=== PATIENT | female | born 1955 | race Caucasian/White ===

== ENCOUNTER 2021-10-08 19:33 | Inpatient (IN) | payer MEDICAID ==
[~2021-10-08] VITALS: Ht 162.6 cm; Wt 67.6 kg
--- NOTE | 2021-10-08 19:45 | NUR ---
[id number] C/O RIGHT SIDED ABDOMINAL PAIN X2DAYS. 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 PATIENT ALERT AND ORIENTED PARAGUAYAN SPEAKING ONLY. PATIENT PLACED IN BED 11 ON MONITOR AND IN A GOWN.
--- NOTE | 2021-10-08 19:50 | NUR ---
US TECH AT PT'S BEDSIDE
--- NOTE | 2021-10-08 19:51 | NUR ---
RLQ & LLQ OSTOMY DRAINING AND INTACT.
[2021-10-08] MEDS ORDERED: MORPHINE SULFATE INJ 2 MG/ML DISP.SYRIN IV ONE (20:00)
[2021-10-08] MEDS ORDERED: MORPHINE SULFATE INJ 4 MG/ML DISP.SYRIN ONE (20:07)
--- NOTE | 2021-10-08 21:07 | NUR ---
R WRIST #22g s/l ;patent and intact
[2021-10-08] MEDS ORDERED: HYDROMORPHONE 1 MG/1 ML DISP.SYRIN IV ONE (22:00)
--- NOTE | 2021-10-08 22:32 | NUR ---
MOVE SHEET SUBMITTED
[2021-10-08] MEDS ORDERED: HYDROMORPHONE 1 MG/1 ML DISP.SYRIN ONE (22:33)
--- NOTE | 2021-10-08 22:39 | NUR ---
COVID ANTIGEN SWAB COLLECTED AND SENT TO LAB
[2021-10-08 22:49] LABS: BASOPHILS % (AUTO) 0.2 % (0.0-2.0); EOSINOPHILS % (AUTO) 0.1 % (0.0-6.0); HEMATOCRIT 24 % (33-45); HEMOGLOBIN 7.8 g/dL (11.5-14.8); LYMPHOCYTES # (AUTO) 0.5 K/uL (0.8-4.8); LYMPHOCYTES % (AUTO) 20.6 % (20.0-44.0); MEAN CORPUSCULAR HGB CONC 32 g/dl (31.0-36.0); MEAN CORPUSCULAR VOLUME 75 fL (82-100); MONOCYTES # (AUTO) 0.4 K/uL (0.1-1.30); MONOCYTES % (AUTO) 16.9 % (2.0-12.0); NEUTROPHILS # (AUTO) 1.4 K/uL (1.8-8.9); NEUTROPHILS % (AUTO) 62.2 % (43.0-81.0); PLATELET COUNT (AUTO) 174 K/uL (150-450); WHITE BLOOD COUNT (AUTO) 2.3 K/uL (4.3-11.0)
--- NOTE | 2021-10-08 23:35 | NUR ---
COVID ANTIGEN POSITIVE
[2021-10-09 00:06] LABS: BAND % (MANUAL) 1 % (0.0-5.0); LYMPHOCYTES % (MANUAL) 17 % (16-48); MONOCYTES % (MANUAL) 18 % (0-11.0); NEUTROPHILS % (MANUAL) 64 (42-76)
--- NOTE | 2021-10-09 00:08 | NUR ---
PATIENT AWAITING ACCEPTANCE TO [facility]
[2021-10-09 00:24] LABS: ALBUMIN 2.1 g/dL (3.4-5.0); BILIRUBIN,DIRECT 1.6 mg/dL (0.0-0.2); BILIRUBIN,TOTAL 1.9 mg/dL (0.2-1.0); CREATININE 1.7 mg/dL (0.6-1.3)
[2021-10-09 00:58] LABS: POTASSIUM 3.6 mmol/L (3.5-5.1)
[2021-10-09 00:59] LABS: CALCIUM, SERUM 8.1 mg/dL (8.5-10.1)
[2021-10-09 01:00] LABS: TOTAL PROTEIN, SERUM 7.4 g/dL (6.4-8.2)
--- NOTE | 2021-10-09 01:13 | NUR ---
EDWIN KNOX UPDATED WITH CLINICALS
--- NOTE | 2021-10-09 01:47 | NUR ---
DR. MCWILLIAMS DO SPEAKING TO [facility] VIA PHONE CALL
[2021-10-09] MEDS ORDERED: IV NS 0.9% 1,000 ML BAG IV ONE (02:00)
[2021-10-09] MEDS ORDERED: HYDROMORPHONE 1 MG/1 ML DISP.SYRIN ONE ×2 (02:25→09:10)
[2021-10-09] MEDS ORDERED: HYDROMORPHONE 1 MG/1 ML DISP.SYRIN IV ONE ×2 (02:30→09:30)
--- NOTE | 2021-10-09 06:00 | NUR ---
2 percutaneous biliary drains to RLQ & LLQ draining bilious material; 110 total output. PT kept comfortable. R wrist #22g s/l; patent and intact. VSS. tolerating r/a well at 99%
--- NOTE | 2021-10-09 09:44 | NUR ---
CALLED [facility] AND WAS NOTIFIED THAT THERE ARE NO BEDS ARE AVAILABLE
--- NOTE | 2021-10-09 09:59 | NUR ---
pt resting in bed. appears more comfortable. stable vitals. updated. will continue to monitor.
--- NOTE | 2021-10-09 11:29 | NUR ---
CALLED HYDRAULIC TECHNICIAN FOR THE PT AND WAS NOTIFIED THAT THE PT IS ABLE TO STAY HERE
--- NOTE | 2021-10-09 11:35 | NUR ---
DR. ELLIS TO DR. HECTOR
--- NOTE | 2021-10-09 11:41 | NUR ---
report given to barry moe for ronel.
[2021-10-09] MEDS ORDERED: LIPA1CAP15 PO (11:52)
[2021-10-09] MEDS ORDERED: HYDR-3972 MT (11:52)
[2021-10-09] MEDS ORDERED: PANT40TA49 PO (11:52)
[2021-10-09] MEDS ORDERED: FAMO40TA7 PO (11:52)
[2021-10-09] MEDS ORDERED: SPIR50TA5 PO (11:52)
[2021-10-09] MEDS ORDERED: LISI10TA29 PO (11:52)
[2021-10-09] MEDS ORDERED: FURO20TA4 PO (11:52)
--- NOTE | 2021-10-09 12:00 | NUR ---
RN NOTE RECEIVED PATIENT FROM ER TRANSPORTED VIA GURNEY, ACCOMPANIED BY NURSE. PATIENT TRANSFERRED TO BED WITH ASSISTANCE. COMFORT MEASURES PROVIDED. PATIENT IS ALERT AND ORIENTED X4 SPEAKS MOSOTHO AND MALAYSIAN, WITH NO SIGNS OF DISTRESS. WITH IV ACCESS ON THE RIGHT WRIST G 22 PATENT AND INTACT ON SALINE LOCK. WITH LEFT AND RIGHT BILIARY DRAIN WITH YELLOWISH TO BROWNISH DRAINAGE. WITH ENLARGED ABDOMEN WITH SOME TENDERNESS. SAFETY PRECAUTIONS IN PLACE; BED IN LOW POSITION AND LOCKED, RAILS UP X2, CALL LIGHT WITHIN REACH. WILL MONITOR PATIENT. DR. ELLIS NOTIFIED OF ADMISSION.
--- NOTE | 2021-10-09 13:00 | NUR ---
MS RN NOTE SEEN BY DR. ELLIS. WILL CONTINUE TO MONITOR PATIENT.
[2021-10-09] MEDS ORDERED: ONDANSETRON HCL/PF 4 MG/2 ML VIAL IV PRN (13:30)
[2021-10-09] MEDS ORDERED: HYDROMORPHONE MDV 1 MG in IV D5W 50 ML IV PRN (13:30)
[2021-10-09] MEDS: LIPASE/PROTEASE/AMYLASE 1 EACH CAPSULE.DR PO SCH ×2 (14:22→18:02)
[2021-10-09] MEDS: Potassium Chloride 10 MEQ in IV NS 0.9% 1,000 ML IV SCH (14:33)
[2021-10-09] MEDS: HYDROMORPHONE 1 MG/1 ML DISP.SYRIN IV PRN ×3 (14:43→22:39)
[2021-10-09] MEDS ORDERED: SPIRONOLACTONE 25 MG TABLET PO SCH (17:00)
[2021-10-09] MEDS: HYDROCODONE/APAP 5/325MG TABLET PO PRN (18:02)
[2021-10-09] MEDS ORDERED: PIPERACILLIN /TAZOBACTAM 2.25 G in IV D5W 50 ML IV SCH (18:30)
--- NOTE | 2021-10-09 19:00 | NUR ---
MS RN NOTE PATIENT IS ALERT AND ORIENTED X4 SPEAKS ZIMBABWEAN AND BELARUSIAN, WITH NO SIGNS OF DISTRESS. WITH IV ACCESS ON THE RIGHT WRIST G 22 PATENT AND INTACT ON SALINE LOCK. WITH LEFT WRIST G 24, WITH IVF OF NS + 10MEQ KCL INFUSING WELL. WITH LEFT AND RIGHT BILIARY DRAIN WITH YELLOWISH TO BROWNISH DRAINAGE DRAINED 300ML. SPECIMEN SENT TO LAB. SAFETY PRECAUTIONS IN PLACE; BED IN LOW POSITION AND LOCKED, RAILS UP X2, CALL LIGHT WITHIN REACH. WILL ENDORSE FOR CONTINUITY OF CARE.
[2021-10-09] MEDS: ZOSYN IVPB 3.375 G in IV D5W 50ml IV SCH (19:43)
[2021-10-09 20:00] VITALS: BP 121/63
--- NOTE | 2021-10-09 20:25 | NUR ---
MS2 RN OPENING NOTE PATIENT RECEIVED IN BED AWAKE. A/OX4. NO S/S OF DISTRESS, BREATHING SYMMETRICAL. RW #24, LW #22 PATENT AND INTACT. SAFETY MEASURES IN PLACE: BED AT LOWEST POSITION, RAILS UP X2, CALL THAKUR WITHIN REACH. WILL CONTINUE TO MONITOR PATIENT.
[2021-10-10] VITALS: BP 111/57
[2021-10-10] MEDS: ZOSYN IVPB 3.375 G in IV D5W 50ml IV SCH ×4 (01:38→18:26)
[2021-10-10] MEDS: Potassium Chloride 10 MEQ in IV NS 0.9% 1,000 ML IV SCH ×2 (02:57→16:30)
[2021-10-10 04:00] VITALS: BP 115/61
[2021-10-10] MEDS: HYDROMORPHONE 1 MG/1 ML DISP.SYRIN IV PRN ×5 (05:44→22:35)
[2021-10-10 07:08] LABS: BASOPHILS % (AUTO) 0.4 % (0.0-2.0); EOSINOPHILS % (AUTO) 0.1 % (0.0-6.0); HEMATOCRIT 24 % (33-45); HEMOGLOBIN 7.8 g/dL (11.5-14.8); LYMPHOCYTES # (AUTO) 0.5 K/uL (0.8-4.8); LYMPHOCYTES % (AUTO) 19.6 % (20.0-44.0); MEAN CORPUSCULAR HGB CONC 33 g/dl (31.0-36.0); MEAN CORPUSCULAR VOLUME 75 fL (82-100); MONOCYTES # (AUTO) 0.5 K/uL (0.1-1.30); MONOCYTES % (AUTO) 21.1 % (2.0-12.0); NEUTROPHILS # (AUTO) 1.4 K/uL (1.8-8.9); NEUTROPHILS % (AUTO) 58.8 % (43.0-81.0); PLATELET COUNT (AUTO) 174 K/uL (150-450); RED BLOOD CELL COUNT(AUTO) 3.18 MIL/uL (4.0-5.2); WHITE BLOOD COUNT (AUTO) 2.4 K/uL (4.3-11.0)
--- NOTE | 2021-10-10 07:18 | NUR ---
BORING MACHINE OPERATOR VERTICAL CLOSING NOTE PATIENT AWAKE IN ROOM. A/OX3-4. NO S/S OF DISTRESS, BREATHING W/O DIFFICULTY. SAFETY MEASURES IN PLACE: BED AT LOWEST POSITION, RAILS UP X2, CALL THAKUR WITHIN REACH. WILL ENDORSE TO NEXT SHIFT FOR PRICE.
--- NOTE | 2021-10-10 07:25 | NUR ---
RN OPENING NOTE- PT IN BED AWAKE. A/OX4. NO S/S OF DISTRESS, DENIES PAIN AT PRESENT, RW #24, LW #22 PATENT AND INTACT. SAFETY MEASURES IN PLACE, BED AT LOWEST POSITION, RAILS UP X2, CALL THAKUR WITHIN REACH. WILL CONTINUE TO MONITOR PATIENT.
[2021-10-10 07:27] LABS: ALBUMIN 1.9 g/dL (3.4-5.0); BILIRUBIN,TOTAL 1.9 mg/dL (0.2-1.0); CREATININE 1.3 mg/dL (0.6-1.3); POTASSIUM 3.8 mmol/L (3.5-5.1); TOTAL PROTEIN, SERUM 6.9 g/dL (6.4-8.2)
[2021-10-10 08:00] VITALS: BP 124/75
[2021-10-10] MEDS: LIPASE/PROTEASE/AMYLASE 1 EACH CAPSULE.DR PO SCH ×3 (08:13→16:40)
[2021-10-10] MEDS: LISINOPRIL (10MG) 10 MG TABLET PO SCH (08:13)
[2021-10-10] MEDS: PANTOPRAZOLE 40 MG TABLET.DR PO SCH (08:14)
[2021-10-10] MEDS: FAMOTIDINE (20 MG) 20 MG TABLET PO SCH (08:47)
[2021-10-10] MEDS ORDERED: FAMOTIDINE 40 MG TABLET PO SCH (09:00)
[2021-10-10] MEDS ORDERED: FUROSEMIDE 20 MG TABLET PO SCH (09:00)
[2021-10-10 10:34] LABS: BAND % (MANUAL) 8 % (0.0-5.0); LYMPHOCYTES % (MANUAL) 16 % (16-48); MONOCYTES % (MANUAL) 14 % (0-11.0); NEUTROPHILS % (MANUAL) 62 (42-76)
[2021-10-10] MEDS: VANCOMYCIN HCL 0.75 GM in IV D5W 250 ML IV SCH ×2 (11:30→22:34)
[2021-10-10 12:00] VITALS: BP 130/71
[2021-10-10] MEDS: SOD FERRIC GLUC 125 MG in IV NS 0.9% 100 ML IV SCH (14:34)
[2021-10-10] MEDS: HYDROCODONE/APAP 5/325MG TABLET PO PRN (15:55)
--- NOTE | 2021-10-10 16:00 | NUR ---
RN NOTE- PT STILL W PAIN ISSUES. CALLED DR ELLIS. ORDERED TORADOL 15MG IVP Q6H PRN
[2021-10-10] MEDS: KETOROLAC TROMETHAMINE INJ 30 MG/ML VIAL IV PRN (17:57)
--- NOTE | 2021-10-10 18:00 | NUR ---
RN NOTE- BILIARY DRAINS. CALLED DR ELLIS AND ASKED ABOUT FLUSHING BILIARY DRAINS. AWAITING RESPONSE. EMPTIED BAGS. LEFT 50CC OUTPUT, RT 250 CC OUTPUT
--- NOTE | 2021-10-10 18:43 | NUR ---
RN CLOSING NOTE- PT IN BED AWAKE. A/OX4. NO S/S OF DISTRESS, PAIN A BIT BETTER CONTROLLED UTILIZING DILAUDID, TORADOL, NORCO OVERLAPPING AT INTERVALS. RW #24, LW #22 PATENT AND INTACT. IVF INFUSING NS W 10MEQ KCL AT 75/HR. SAFETY MEASURES IN PLACE, BED AT LOWEST POSITION, RAILS UP X2, CALL THAKUR WITHIN REACH. WILL CONTINUE TO MONITOR PATIENT.
[2021-10-10 20:00] VITALS: BP_SYST 95; BP_DIAS 45; BP_DIAS 54
--- NOTE | 2021-10-10 20:30 | NUR ---
RN NOTES RECEIVED PATIENT IN BED, ALERT/ORIENTED X4, STABLE ON ROOM AIR, CHRONIC ABDOMINAL PAIN DUE CANCER, LEFT AND RIGHT BILIARY DRAIN, GREEN DRAINAGE, REQUESTING TO FLUSH BOTH DRAINS, WILL FLUSH PER PROTOCOL, KEPT SAFE, CALL LIGHT WITHIN REACH.
[2021-10-11] VITALS (11 sets, daily range): BP systolic 84–107; BP diastolic 47–68
[2021-10-11] MEDS: ZOSYN IVPB 3.375 G in IV D5W 50ml IV SCH ×4 (02:02→20:55)
[2021-10-11] MEDS: HYDROMORPHONE 1 MG/1 ML DISP.SYRIN IV PRN ×3 (06:03→17:18)
[2021-10-11] MEDS: Potassium Chloride 10 MEQ in IV NS 0.9% 1,000 ML IV SCH ×2 (06:45→20:53)
--- NOTE | 2021-10-11 06:54 | NUR ---
RN NOTES ALERT/ORIENTED X4, STABLE ON ROOM AIR, ABDOMINAL PAIN, DILAUDID 1MG IV GIVEN X2 WITH ADEQUATE RELIEF, VANCOMYCIN, ZOSYN, IVF WITH KCL 10 MEQ AT 75 ML/HR, LEFT WRIST #24, WILL NOT LAST, MAY NEED PICC LINE OR MIDLINE, VANCO TROUGH 10/11/21 AT 2200H, LEFT BILIARY DRAIN OUTPUT IS 50, RIGHT DRAIN 250 WITH GREEN/BROWN, CONTINUE SUPPORTIVE CARE, PAIN CONTROL.
--- NOTE | 2021-10-11 07:30 | NUR ---
RN OPENING NOTE- PT IN BED ASLEEP THOUGH EASILY AWAKENED. A/OX4. NO S/S OF DISTRESS, MILD PAIN STATED BUT BETTER, LW #24 PATENT AND INTACT. SAFETY MEASURES IN PLACE, BED AT LOWEST POSITION, RAILS UP X2, CALL THAKUR WITHIN REACH. WILL CONTINUE TO MONITOR PATIENT.
[2021-10-11 08:11] LABS: BASOPHILS % (AUTO) 0.5 % (0.0-2.0); EOSINOPHILS % (AUTO) 2.6 % (0.0-6.0); HEMATOCRIT 21 % (33-45); LYMPHOCYTES # (AUTO) 0.4 K/uL (0.8-4.8); LYMPHOCYTES % (AUTO) 14.2 % (20.0-44.0); MEAN CORPUSCULAR HGB CONC 33 g/dl (31.0-36.0); MEAN CORPUSCULAR VOLUME 74 fL (82-100); MONOCYTES # (AUTO) 0.4 K/uL (0.1-1.30); MONOCYTES % (AUTO) 14.8 % (2.0-12.0); NEUTROPHILS # (AUTO) 1.8 K/uL (1.8-8.9); NEUTROPHILS % (AUTO) 67.9 % (43.0-81.0); PLATELET COUNT (AUTO) 142 K/uL (150-450); RED BLOOD CELL COUNT(AUTO) 2.88 MIL/uL (4.0-5.2); WHITE BLOOD COUNT (AUTO) 2.6 K/uL (4.3-11.0)
[2021-10-11 08:16] LABS: ALBUMIN 1.7 g/dL (3.4-5.0); BILIRUBIN,TOTAL 1.9 mg/dL (0.2-1.0); CALCIUM, SERUM 7.7 mg/dL (8.5-10.1); CREATININE 1.4 mg/dL (0.6-1.3); POTASSIUM 3.6 mmol/L (3.5-5.1); TOTAL PROTEIN, SERUM 6.3 g/dL (6.4-8.2)
--- NOTE | 2021-10-11 08:20 | NUR ---
RN NOTE- LAB CALLED [facility] 7.[address]. [address]IF[address] DR ELLIS. ORDERED ONE UNIT PRBC PLUS REQUESTED MIDLINE PLACEMENT FOR THIS PT SHE HAS COMPROMISED IV SITE AND HARD STICK. DR ELLIS GAVE MIDLINE ORDER. HOUSE SUP[ NOTIFIED.
[2021-10-11] MEDS: LISINOPRIL (10MG) 10 MG TABLET PO SCH (09:00)
[2021-10-11] MEDS: LIPASE/PROTEASE/AMYLASE 1 EACH CAPSULE.DR PO SCH ×3 (09:13→17:18)
[2021-10-11] MEDS: FAMOTIDINE (20 MG) 20 MG TABLET PO SCH (09:14)
[2021-10-11] MEDS: PANTOPRAZOLE 40 MG TABLET.DR PO SCH (09:18)
--- NOTE | 2021-10-11 09:24 | NUR ---
RN NOTE- ORDERED MIDLINE, PRBC, TYPE AND SCREEN AND PHONED BLOOD BANK. CONSENT SIGNED BY PT W FAMILY (SON) ON PHONE TRANSLATING.
[2021-10-11 09:30] LABS: EOSINOPHILS % (MANUAL) 2 % (0-4); LYMPHOCYTES % (MANUAL) 10 % (16-48); MONOCYTES % (MANUAL) 6 % (0-11.0); NEUTROPHILS % (MANUAL) 82 (42-76)
[2021-10-11] MEDS: HYDROCODONE/APAP 5/325MG TABLET PO PRN ×2 (11:10→21:18)
[2021-10-11] MEDS: VANCOMYCIN HCL 0.75 GM in IV D5W 250 ML IV SCH (11:18)
[2021-10-11] MEDS: KETOROLAC TROMETHAMINE INJ 30 MG/ML VIAL IV PRN (13:18)
[2021-10-11] MEDS: SOD FERRIC GLUC 125 MG in IV NS 0.9% 100 ML IV SCH (14:51)
--- NOTE | 2021-10-11 17:10 | NUR ---
RN NOTE- BILIARY DRAINS EMPTIED RT 150, LFT -50 , FLUSHED EACH W 10CC NS. TOLERATED WELL. MID LINE RN TO UNIT. MIDLINE 18G INSERTED TO DELROY. HEP LOCK TO RT WRIST DC'D.
--- NOTE | 2021-10-11 18:00 | NUR ---
RN NOTE- ONE UNIT OF PRBC'S INITIATED TRANSFUSION AT THIS TIME TO MIDLINE DELROY .
--- NOTE | 2021-10-11 19:13 | NUR ---
RN NOTE- PTY IN BED COMFORTABLE , ONE UNIT PRBC'S TRANSFUSING AT 120/HR. NO ADVERSE REACTION NOTED. VS STABLE THUS FAR. PT TALKING W FAMILY, NO ACUTE DISTRESS,. NEEDS ATTENDED, REPORT GIVEN TO NOC SHIFT, SIDE RAILS UP , BED LOCKED, CALL ,LIGHT IN REACH. PASSED ONTO CARE OF NOC RN
--- NOTE | 2021-10-11 19:18 | NUR ---
RN NOTE PTY IN BED COMFORTABLE , ONE UNIT PRBC'S TRANSFUSING AT 120/HR. NO ADVERSE REACTION NOTED. VS STABLE THUS FAR. PT TALKING W FAMILY, NO ACUTE DISTRESS,. NEEDS ATTENDED, PT NOTED WITH BILATERAL BILIARY DRAINS WITH YELLOW DRAINAGE, SIDE RAILS UP , BED LOCKED, CALL ,LIGHT IN REACH. WILL CONTINUE TO MONITOR.
--- NOTE | 2021-10-11 21:14 | NUR ---
RN NOTES PT DONE WITH BLOOD TRANSFUSION AT THIS TIME. NO SIGNS OR SYMPTOMS OF FEVER OR REACTION TO BLOOD NOTED AT THIS TIME. PT ASSISTED TO BEDSIDE COMMODE. STEADY GAIT NOTED. PT STARTED ON ANTIBIOTIC LATE DUE TO TRANSFUSION AND ONLY ONE IV ACCESS. PRN NORCO WILL BE GIVEN FOR PAIN.WILL CONTINUE TO MONITOR.
[2021-10-12] MEDS: VANCOMYCIN HCL 0.75 GM in IV D5W 250 ML IV SCH ×3 (00:13→23:06)
[2021-10-12] MEDS: ZOSYN IVPB 3.375 G in IV D5W 50ml IV SCH ×4 (01:32→18:11)
[2021-10-12] MEDS: HYDROMORPHONE 1 MG/1 ML DISP.SYRIN IV PRN ×3 (04:04→20:50)
--- NOTE | 2021-10-12 04:04 | NUR ---
RN NOTES PRN DILAUDID GIVEN FOR PAIN TOLERATED WELL WILL CONTINUE TO MONITOR.
--- NOTE | 2021-10-12 06:47 | NUR ---
RN NOTE PT IN BED COMFORTABLE , S/P 1 UNIT OF PRBC TRANSFUSED TOLERATED WELL.. NO ADVERSE REACTION NOTED. V PT RUINING NS + KCL @ 75 ML/HR. NO ACUTE DISTRESS,. NEEDS ATTENDED, PT NOTED WITH BILATERAL BILIARY DRAINS WITH YELLOW DRAINAGE LEFT DRAIN WITH 200CC DRAINAGE RIGHT DRAINAGE 10CC, SIDE RAILS UP , BED LOCKED, CALL ,LIGHT IN REACH. WILL ENDORSE CARE TO DAY SHIFT NURSE.
[2021-10-12 06:56] LABS: BASOPHILS % (AUTO) 0.3 % (0.0-2.0); EOSINOPHILS % (AUTO) 2.1 % (0.0-6.0); HEMATOCRIT 23 % (33-45); HEMOGLOBIN 7.7 g/dL (11.5-14.8); LYMPHOCYTES # (AUTO) 0.4 K/uL (0.8-4.8); LYMPHOCYTES % (AUTO) 13.9 % (20.0-44.0); MEAN CORPUSCULAR HGB CONC 33 g/dl (31.0-36.0); MEAN CORPUSCULAR VOLUME 78 fL (82-100); MONOCYTES # (AUTO) 0.5 K/uL (0.1-1.30); MONOCYTES % (AUTO) 16.5 % (2.0-12.0); NEUTROPHILS # (AUTO) 1.9 K/uL (1.8-8.9); NEUTROPHILS % (AUTO) 67.2 % (43.0-81.0); PLATELET COUNT (AUTO) 129 K/uL (150-450); RED BLOOD CELL COUNT(AUTO) 2.98 MIL/uL (4.0-5.2); WHITE BLOOD COUNT (AUTO) 2.8 K/uL (4.3-11.0)
[2021-10-12 07:19] LABS: CALCIUM, SERUM 6.8 mg/dL (8.5-10.1); CREATININE 1.2 mg/dL (0.6-1.3); POTASSIUM 4.8 mmol/L (3.5-5.1)
[2021-10-12 08:00] VITALS: BP 108/63
[2021-10-12] MEDS: LIPASE/PROTEASE/AMYLASE 1 EACH CAPSULE.DR PO SCH ×3 (08:31→17:03)
[2021-10-12] MEDS: PANTOPRAZOLE 40 MG TABLET.DR PO SCH (08:31)
[2021-10-12] MEDS: FAMOTIDINE (20 MG) 20 MG TABLET PO SCH (08:32)
[2021-10-12] MEDS: LISINOPRIL (10MG) 10 MG TABLET PO SCH (08:33)
[2021-10-12] MEDS: Potassium Chloride 10 MEQ in IV NS 0.9% 1,000 ML IV SCH ×2 (08:34→21:23)
--- NOTE | 2021-10-12 08:56 | NUR ---
MS RN OPENING NOTE Patient in bed, awake. A/O x 4, South Korean speaking. On room air breathing evenly and unlabored. No SOB or s/s of distress noted. IV access on DELROY midline infusing NS + KCl at 75 ml/hr. Left biliary drain and Right biliary drain present, flushed both drains with 10 cc NS. Safety precautions in place: bed in low, locked position; siderails up x 2; call light within reach. Will continue to monitor.
[2021-10-12] MEDS: SOD FERRIC GLUC 125 MG in IV NS 0.9% 100 ML IV SCH (14:34)
[2021-10-12 16:00] VITALS: BP 112/59
[2021-10-12] MEDS: KETOROLAC TROMETHAMINE INJ 30 MG/ML VIAL IV PRN (17:17)
--- NOTE | 2021-10-12 19:23 | NUR ---
MS RN CLOSING NOTE Patient in bed, awake. A/O x 4, Maltese speaking; able to make needs known. Stable on room air breathing evenly and unlabored. No SOB or s/s of distress noted. IV access on DELROY midline infusing NS + KCl at 75 ml/hr. Left biliary drain present with an output of 40 cc and Right biliary drain present with an output of 300 cc. All needs attended to. Due meds given. Safety precautions maintained: bed in low, locked position; siderails up x 2; call light within reach. Will endorse to skin diver nurse for PRICE.
[2021-10-12 20:00] VITALS: BP_SYST 101; BP_SYST 106; BP_DIAS 59; BP_DIAS 75
[2021-10-13] MEDS: ZOSYN IVPB 3.375 G in IV D5W 50ml IV SCH ×4 (01:11→18:29)
--- NOTE | 2021-10-13 04:40 | NUR ---
RN notes Resting comfortably in bed with complaint of pain 04/22. Dilaudid x 2 administered. with relief. No distress noted. On room air, tolerating well. Alert and oriented x 4, arminian speaking. Understand a little welsh. Kept clean and dry. Will endorse to next shift for continuity of care.
[2021-10-13] MEDS: HYDROMORPHONE 1 MG/1 ML DISP.SYRIN IV PRN ×2 (05:04→19:33)
--- NOTE | 2021-10-13 07:30 | NUR ---
MS RN OPENING NOTE Patient in bed, awake. A/O x 4, Ivorian speaking. Able to make needs known.On room air breathing evenly and unlabored. No SOB or s/s of distress noted. IV access on DELROY midline infusing NS + KCl at 75 ml/hr. Left biliary drain and Right biliary drain present, intact and draining. Safety precautions in place: bed in low, locked position; siderails up x 2; call light within reach. Will continue to monitor.
[2021-10-13 07:53] LABS: CALCIUM, SERUM 7.8 mg/dL (8.5-10.1); CREATININE 1.4 mg/dL (0.6-1.3); POTASSIUM 3.9 mmol/L (3.5-5.1)
[2021-10-13 08:00] VITALS: BP 120/71
[2021-10-13] MEDS: PANTOPRAZOLE 40 MG TABLET.DR PO SCH (08:55)
[2021-10-13] MEDS: FAMOTIDINE (20 MG) 20 MG TABLET PO SCH (08:55)
[2021-10-13] MEDS: LIPASE/PROTEASE/AMYLASE 1 EACH CAPSULE.DR PO SCH ×3 (08:55→16:33)
[2021-10-13] MEDS: LISINOPRIL (10MG) 10 MG TABLET PO SCH (08:55)
[2021-10-13] MEDS: KETOROLAC TROMETHAMINE INJ 30 MG/ML VIAL IV PRN (09:00)
[2021-10-13] MEDS: HYDROCODONE/APAP 5/325MG TABLET PO PRN ×2 (11:51→21:30)
[2021-10-13] MEDS: Potassium Chloride 10 MEQ in IV NS 0.9% 1,000 ML IV SCH (14:01)
[2021-10-13] MEDS: SOD FERRIC GLUC 125 MG in IV NS 0.9% 100 ML IV SCH (14:21)
[2021-10-13 16:00] VITALS: BP 101/65
--- NOTE | 2021-10-13 18:56 | NUR ---
MS RN CLOSING NOTE Patient in bed, awake. A/O x 4, Malawian speaking. Able to make needs known.On room air breathing evenly and unlabored. No SOB or s/s of distress noted. IV access on DELROY midline infusing NS + KCl at 75 ml/hr. Left biliary drain and Right biliary drain present, intact and drainin .Right 400 ml and left 25 ml. Safety precautions in place: small open skin noted on the buttocks , wound consult ordered, took picture and kept in chart.All due meds given as ordered. Bed in low, locked position; siderails up x 2; call light within reach. Will endorse incoming shift for ronel.
--- NOTE | 2021-10-13 19:15 | NUR ---
RN NOTE PT AWAKE IN BED, ABLE TO VERBALIZE NEEDS. RESPIRATIONS EVEN/UNLABORED. ON ROOM AIR AND AN WELL. SHE DENIES ANY SOB. IV SITE DELROY MIDLINE INTACT/PATENT, INFUSING NS/KCL 10mEq @75ML/HR. PT WILL BILIARY DRAINS, FUNCTIONING WELL. PT CLEAN/DRY AND COMFORTABLE IN BED. NO ACUTE DISTRESS NOTED. SAFETY MEASURES IN PLACE, BED IN LOWEST LOCKED POSITION, S/R UPX2, CALL LIGHT WITHIN REACH. WILL CONT TO MONITOR.
[2021-10-13 20:00] VITALS: BP 121/50
[2021-10-14] MEDS: ZOSYN IVPB 3.375 G in IV D5W 50ml IV SCH ×3 (01:24→12:19)
[2021-10-14] MEDS: Potassium Chloride 10 MEQ in IV NS 0.9% 1,000 ML IV SCH (01:39)
[2021-10-14] MEDS: HYDROMORPHONE 1 MG/1 ML DISP.SYRIN IV PRN ×2 (03:32→12:19)
[2021-10-14 04:00] VITALS: BP 110/66
[2021-10-14] MEDS: HYDROCODONE/APAP 5/325MG TABLET PO PRN (05:28)
[2021-10-14 07:12] LABS: CREATININE 1.4 mg/dL (0.6-1.3); POTASSIUM 3.9 mmol/L (3.5-5.1)
--- NOTE | 2021-10-14 07:13 | NUR ---
RN NOTE Pt resting in bed, easily arousable to stimuli. Pain well controlled with prn meds Dilaudid and [place]. Pt able to ambulate to BR with slow, steady gait, with standby assist provided. R/L Biliary tubes draining well. Flushed with 10cc NS. Pt in no acute distress. All needs attended to. Safety measures maintained.
--- NOTE | 2021-10-14 07:20 | NUR ---
RN OPENING NOTES RECEIVED PATIENT AWAKE IN BED, ABLE TO VERBALIZE NEEDS. RESPIRATIONS EVEN/UNLABORED WHILE ON ROOM AIR WITH NO S/SX OF RESPIRATORY DISTRESS NOTED. NO COMPLAINT OF PAIN VERBALIZED AT THIS TIME. IV SITE DELROY MIDLINE INTACT AND PATENT, INFUSING NS/KCL 10mEq @75ML/HR. BILIARY DRAINS INTACT AND PATENT. NO ACUTE DISTRESS NOTED. SAFETY MEASURES IN PLACE: BED IN LOWEST POSITION, WHEELS LOCKED, SIDE RAILS UPX2, CALL LIGHT WITHIN REACH. WILL CONTINUE TO MONITOR PATIENT
[2021-10-14 08:00] VITALS: BP 94/57
[2021-10-14] MEDS: PANTOPRAZOLE 40 MG TABLET.DR PO SCH (09:03)
[2021-10-14] MEDS: FAMOTIDINE (20 MG) 20 MG TABLET PO SCH (09:03)
[2021-10-14] MEDS: LIPASE/PROTEASE/AMYLASE 1 EACH CAPSULE.DR PO SCH ×2 (09:03→12:18)
--- NOTE | 2021-10-14 10:27 | NUR ---
WOUND CARE CONSULT: REVIEWED CHART, NURSING DOCUMENTATION AND PHOTO WHICH INDICATES SACRAL SCARRING. RECOMMENDATIONS MADE FOR SKIN PROTECTION. DISCUSSED WITH NURSING STAFF. CURRENT DARION SCORE IS 17. MD IN AGREEMENT WITH PLAN OF CARE.
[2021-10-14] MEDS ORDERED: PIPE3.379 IV (11:11)
[2021-10-14] MEDS ORDERED: FERR325T23 PO (11:12)
--- NOTE | 2021-10-14 15:00 | NUR ---
RN NOTES PATIENT HAS ECCHYMOSIS NOTED TO BILATERAL FOREARMS. SACRAL WOUND ALSO NOTED AND PATIENT IS REFUSING TO HAVE PICTURES TAKEN FOR WOUND DOCUMENTATION.
--- NOTE | 2021-10-14 15:12 | NUR ---
FLAT FINISHER NOTES PATIENT MEDICALLY STABLE FOR TRANSFER TO SNF. REPORT WAS GIVEN TO LENNIE BOSCH OVER THE PHONE AT [facility]. PATIENT WAS EDUCATED ON DISCHARGE INSTRUCTIONS. PATIENT'S SON WAS AVAILABLE ON THE PHONE FOR DISCHARGE TEACHING. BOTH PATIENT AND SON WERE ABLE TO VERBALIZE UNDERSTANDING OF DISCHARGE INSTRUCTIONS. PATIENT WILL CONTINUE ANTIBIOTICS FOR [address] ELLIS MEDICAL ORDER. DELROY MIDLINE KEPT IN PLACE INTACT AND PATENT. L AND R BILIARY DRAINS INTACT AND PATENT WITH SCANT DRAINAGE NOTED. ALL FORMS SIGNED AND BELONGINGS ACCOUNTED FOR. PATIENT TRANSPORTED VIA AMBULANCE AND ACCOMPANIED BY 2 EMT.
[2021-10-14 16:00] VITALS: BP_SYST 105; BP_SYST 115; BP_DIAS 60; BP_DIAS 76
== END 2021-10-14 15:15 ==
LOC: ER 19:36 → MEDSG2 10-09 11:39 → UNDODISIN 10-14 15:15
PROVIDERS: ADMIT Internal Medicine; ATTEND Internal Medicine
PROC: 05HB33Z Insertion of Infusion Device into Right Basilic Vein, Percutaneous Approach (ICD-10-PCS; principal; 2021-10-11)
PROC: 30233N1 Transfusion of Nonautologous Red Blood Cells into Peripheral Vein, Percutaneous Approach (ICD-10-PCS; 2021-10-11)
DX: K83.09 Other cholangitis (principal); N17.0 Acute kidney failure with tubular necrosis; U07.1 COVID-19; C22.1 Intrahepatic bile duct carcinoma; E83.51 Hypocalcemia; E88.09 Other disorders of plasma-protein metabolism, not elsewhere classified; R18.8 Other ascites; I12.9 Hypertensive chronic kidney disease with stage 1 through stage 4 chronic kidney disease, or unspecified chronic kidney disease; D50.9 Iron deficiency anemia, unspecified; N18.30 Chronic kidney disease, stage 3 unspecified; J98.11 Atelectasis; Z79.899 Other long term (current) drug therapy; Z98.890 Other specified postprocedural states; D25.9 Leiomyoma of uterus, unspecified; B95.2 Enterococcus as the cause of diseases classified elsewhere; B96.1 Klebsiella pneumoniae [K. pneumoniae] as the cause of diseases classified elsewhere; B96.5 Pseudomonas (aeruginosa) (mallei) (pseudomallei) as the cause of diseases classified elsewhere
CPT/HCPCS: 36410; 36415; 71045-TC; 80048-TC; 80053-TC; 80076-TC; 80202-TC; 83690-TC; 85025-TC; 85730-TC; 86140-TC; 86850-TC; 87070-TC; 87081-TC; 87186-TC; C9803; G0378; J1170; J1885; J2270; J2543; J2916; J3370; J3480; J7030; J7060; P9016